=== PATIENT | female | born 1975 | race Caucasian/White ===

== ENCOUNTER 2016-12-06 05:40 | Inpatient (IN) | payer OTHER ==
[~2016-12-06] VITALS: Ht 157.5 cm; Wt 68.1 kg
[2016-12-06] MEDS ORDERED: LACTATED RINGERS 1,000 ML IV SCH ×4 (05:52→09:46)
[2016-12-06] MEDS ORDERED: OXYTOCIN 30U/ 0.9% NaCL 500ML 500 ML IV SCH (05:52)
[2016-12-06 05:55] VITALS: BP 125/81
[2016-12-06] MEDS ORDERED: METOCLOPRAMIDE 5 MG/ML, 2ML IV ONE (06:00)
[2016-12-06] MEDS ORDERED: LACTATED RINGERS 1,000 ML IVBOLUS ONE (06:00)
[2016-12-06] MEDS ORDERED: SODIUM CITRATE/CITRIC ACID 30 ML UDC PO ONE (06:00)
[2016-12-06] MEDS ORDERED: PREN-3 PO (06:08)
[2016-12-06 06:18] LABS: HEMATOCRIT 32.6 % (34.6-47.8); HEMOGLOBIN 11.2 g/dL (11.7-16.4); WHITE BLOOD COUNT 6.5 x10^3/uL (3.4-10)
[2016-12-06] MEDS ORDERED: SODIUM CITRATE/CITRIC ACID 30 ML UDC ONE ×2 (07:25→08:37)
[2016-12-06] MEDS ORDERED: NEWBORN KIT ONE (07:25)
[2016-12-06] MEDS ORDERED: METOCLOPRAMIDE 5 MG/ML, 2ML ONE ×2 (07:25→08:37)
[2016-12-06] MEDS ORDERED: OXYTOCIN 30U/ 0.9% NaCL 500ML 500 ML ONE (08:07)
[2016-12-06] MEDS ORDERED: FENTANYL PF 100 MCG/2ML ONE (08:30)
[2016-12-06] MEDS ORDERED: ONDANSETRON 2MG/ML, 2ML IVPush PRN (08:30)
[2016-12-06] MEDS ORDERED: hydrALAzine 20 MG/ML, 1ML IV PRN (08:30)
[2016-12-06] MEDS ORDERED: OXYcodone 5 MG/5 ML ORAL.SOL UDC PO PRN (08:30)
[2016-12-06] MEDS ORDERED: HYDROcodone/APAP 7.5-325MG/15ML UDC PO PRN (08:30)
[2016-12-06] MEDS ORDERED: PROMETHAZINE 25 MG/ML, 1ML IV PRN (08:30)
[2016-12-06] MEDS ORDERED: ALBUTEROL SULFATE 2.5 MG/3 ML NPPB PRN (08:30)
[2016-12-06] MEDS ORDERED: EPHEDRINE 50 MG/ML, 1ML IVPush PRN (08:30)
[2016-12-06] MEDS ORDERED: MEPERIDINE/PF 25MG/0.5ML IVPush PRN (08:30)
[2016-12-06] MEDS ORDERED: MIDAZOLAM 1 MG/ML, 2ML IV PRN (08:30)
[2016-12-06] MEDS ORDERED: LABETALOL 5MG/ML, 20ML IV PRN (08:30)
[2016-12-06] MEDS ORDERED: FENTANYL PF 100 MCG/2ML IV PRN (08:30)
[2016-12-06] MEDS ORDERED: HYDROmorphone 1 MG/ML, 1ML IV PRN (08:30)
[2016-12-06] MEDS ORDERED: ONDANSETRON 2MG/ML, 2ML ONE (08:37)
[2016-12-06] MEDS ORDERED: OXYTOCIN 10 UNITS/ML, 1ML ONE (08:37)
[2016-12-06] MEDS ORDERED: DEXAMETHASONE 4 MG/ML, 1ML ONE (08:37)
[2016-12-06] MEDS ORDERED: CEFAZOLIN 1,000 MG ONE (08:37)
[2016-12-06] MEDS: OXYTOCIN 30U/ 0.9% NaCL 500ML 500 ML IV SCH ×2 (09:46→19:46)
[2016-12-06] MEDS ORDERED: morphine SULFATE 10 MG/ML, 1ML IVPush PRN ×2 (10:00)
[2016-12-06] MEDS ORDERED: METHYLERGONOVINE 0.2 MG/ML IM PRN (10:00)
[2016-12-06] MEDS ORDERED: ACETAMINOPHEN 325 MG TABLET PO PRN (10:00)
[2016-12-06] MEDS ORDERED: BISACODYL 10 MG SUPP PR PRN (10:00)
[2016-12-06] MEDS ORDERED: MISOPROSTOL 200 MCG TABLET PR PRN (10:00)
[2016-12-06] MEDS ORDERED: CALCIUM CARBONATE 500 MG TAB.CHEW PO PRN (10:00)
[2016-12-06] MEDS ORDERED: ONDANSETRON 2MG/ML, 2ML IV PRN (10:00)
[2016-12-06] MEDS ORDERED: OXYcodone/APAP 5/325MG TABLET PO PRN (10:00)
[2016-12-06] MEDS ORDERED: CARBOPROST TROMETHAMINE 250 MCG/ML, 1ML IM PRN (10:00)
[2016-12-06] MEDS ORDERED: DOCUSATE 100 MG CAPSULE PO PRN (10:00)
[2016-12-06] MEDS ORDERED: SIMETHICONE 80 MG CHEW TAB PO PRN (10:00)
[2016-12-06] MEDS ORDERED: RHOGAM FROM BLOOD BANK 1 NOTE EA IM/IV ONE (10:00)
[2016-12-06] MEDS ORDERED: HYDROmorphone 1 MG/ML, 1ML ONE (10:33)
[2016-12-06] MEDS: HYDROmorphone 1 MG/ML, 1ML IV PRN ×2 (10:41→11:04)
[2016-12-06 12:22] VITALS: BP 124/76
[2016-12-06] MEDS: OXYcodone/APAP 5/325MG TABLET PO PRN ×3 (12:38→21:10)
[2016-12-06 16:51] VITALS: BP 110/70
[2016-12-06 17:34] LABS: HEMATOCRIT 30.9 % (34.6-47.8); HEMOGLOBIN 10.6 g/dL (11.7-16.4); WHITE BLOOD COUNT 11.9 x10^3/uL (3.4-10)
[2016-12-06 20:00] VITALS: BP 11/72
[2016-12-06] MEDS: IBUPROFEN 600 MG TABLET PO PRN (21:09)
[2016-12-07 02:20] VITALS: BP 99/64
[2016-12-07] MEDS: OXYcodone/APAP 5/325MG TABLET PO PRN ×2 (02:21→06:15)
[2016-12-07] MEDS: OXYTOCIN 30U/ 0.9% NaCL 500ML 500 ML IV SCH (05:46)
[2016-12-07] MEDS: IBUPROFEN 600 MG TABLET PO PRN (06:15)
[2016-12-07] MEDS ORDERED: PRENATAL VIT/IRON/FA 1 EACH TABLET PO SCH (09:00)
[2016-12-07 09:15] VITALS: BP 130/88
[2016-12-07] MEDS ORDERED: IBUP-1222 PO (12:26)
[2016-12-07] MEDS ORDERED: OXYC-302 PO (12:30)
== END 2016-12-07 14:45 | disposition home or self-care (01) | DRG 766 ==
LOC: LDIP 05:40 → 2NW 11:49
PROVIDERS: ADMIT Obstetrics & Gynecology; ATTEND Obstetrics & Gynecology
PROC: 10D00Z1 Extraction of Products of Conception, Low, Open Approach (ICD-10-PCS; principal; 2016-12-07)
DX: O34.219 Maternal care for unspecified type scar from previous cesarean delivery (principal); O09.523 Supervision of elderly multigravida, third trimester; O69.81X0 Labor and delivery complicated by cord around neck, without compression, not applicable or unspecified; Z37.0 Single live birth; Z3A.38 38 weeks gestation of pregnancy
CPT/HCPCS: 36415; 85025; 85461; 86850; 86870; 86900; 86922; 86923; J0690; J1100; J1170; J2405; J2790; J3010; C1765; J2590; J2765; J7120